=== PATIENT | male | born 1965 | race Caucasian/White ===

== ENCOUNTER 2022-04-09 04:04 | Day surgery (SDC) | payer OTHER ==
[2022-04-07 13:36] VITALS: BMI 25.7
[2022-04-09] MEDS ORDERED: LIDOCAINE HCL/PF 2% SDV 5ML VIAL ONE (07:08)
[2022-04-09] MEDS ORDERED: PROPOFOL 20 ML ONE ×2 (07:08→07:50)
[2022-04-09] MEDS ORDERED: MIDAZOLAM HCL 2 MG/2 ML SINGLE DOSE VIAL ONE (07:09)
[2022-04-09] MEDS ORDERED: ceFAZolin SODIUM 1 GM VIAL IVPB ONE (07:45)
[2022-04-09] MEDS ORDERED: ceFAZolin SODIUM 1 GM VIAL ONE (07:46)
[2022-04-09] MEDS ORDERED: DEXAMETHASONE SOD PHOSPHATE 4 MG/1 ML VIAL ONE (07:46)
[2022-04-09] MEDS ORDERED: ONDANSETRON 4 MG/2 ML VIAL ONE (07:56)
[2022-04-09] MEDS ORDERED: KETOROLAC TROMETHAMINE 30 MG/1 ML VIAL ONE (07:56)
[2022-04-09] MEDS ORDERED: oxyCODONE HCL 5 MG TABLET PO PRN ×3 (08:16→08:22)
[2022-04-09] MEDS ORDERED: ONDANSETRON 4 MG/2 ML VIAL IVPUSH PRN (08:22)
[2022-04-09] MEDS ORDERED: PROMETHAZINE HCL 25 MG/1 ML VIAL IVPUSH PRN (08:22)
[2022-04-09] MEDS ORDERED: DEXTROSE 5%-0.45% SALINE 1,000 ML IV SCH (08:30)
[2022-04-09] MEDS: hydrALAZINE HCL 20 MG/ML VIAL IVPUSH ONE ×2 (08:35→09:05)
[2022-04-09 10:33] VITALS: RESP 16
[2022-04-09 10:38] VITALS: PULSE 60
[2022-04-09] MEDS ORDERED: ACETAMINOPHEN 500 MG TABLET (FP) ONE (13:17)
[2022-04-09 16:06] VITALS: BP 150/80; TEMP 98
== END 2022-04-09 13:10 | disposition home or self-care (01) ==
LOC: JASU-SURG 04:04
PROVIDERS: ATTEND Urology
PROC: 0VT08ZZ Resection of Prostate, Via Natural or Artificial Opening Endoscopic (ICD-10-PCS; principal; 2022-04-09 07:30)
DX: N40.1 Benign prostatic hyperplasia with lower urinary tract symptoms (principal); R39.12 Poor urinary stream
CPT/HCPCS: 94760

== ENCOUNTER 2022-06-11 05:29 | Day surgery (SDC) | payer OTHER ==
[2022-06-09 10:01] VITALS: BMI 25.7
[2022-06-11 12:47] VITALS: RESP 18
[2022-06-11] MEDS ORDERED: PROMETHAZINE HCL 25 MG/1 ML VIAL IVPB PRN (14:26)
[2022-06-11] MEDS ORDERED: ONDANSETRON 4 MG/2 ML VIAL IVPUSH PRN (14:26)
[2022-06-11] MEDS ORDERED: LACTATED RINGERS SOLUTION 1,000 ML IV SCH (14:30)
[2022-06-11] MEDS ORDERED: MIDAZOLAM HCL 2 MG/2 ML SINGLE DOSE VIAL ONE ×2 (14:32→15:30)
[2022-06-11] MEDS ORDERED: BUPIVACAINE HCL/PF 0.5% (5MG/ML) 10 ML VIAL ONE (14:36)
[2022-06-11] MEDS ORDERED: GENTAMICIN SO4 80 MG/2 ML VIAL ONE (14:36)
[2022-06-11] MEDS ORDERED: GENTAMICIN SO4 80 MG/2 ML VIAL IVPB ONE (14:49)
[2022-06-11] MEDS ORDERED: ceFAZolin SODIUM 1 GM VIAL IVPB ONE (14:49)
[2022-06-11] MEDS ORDERED: ceFAZolin SODIUM 1 GM VIAL ONE (15:03)
[2022-06-11] MEDS ORDERED: PROPOFOL 20 ML ONE (15:03)
[2022-06-11] MEDS ORDERED: ONDANSETRON 4 MG/2 ML VIAL ONE (15:03)
[2022-06-11] MEDS ORDERED: LIDOCAINE HCL/PF 2% SDV 5ML VIAL ONE (15:03)
[2022-06-11] MEDS ORDERED: ROCURONIUM BROMIDE 50 MG/5 ML SYRINGE ONE (15:04)
[2022-06-11] MEDS ORDERED: oxyCODONE HCL 5 MG TABLET PO PRN (15:46)
[2022-06-11] MEDS ORDERED: DEXTROSE 5%-0.45% SALINE 1,000 ML IV SCH (16:00)
[2022-06-11] MEDS ORDERED: LABETALOL HCL 5 MG/1 ML (100MG/20 ML VIAL) IVPUSH ONE ×2 (16:20→16:21)
[2022-06-11 19:18] VITALS: BP 152/89; PULSE 62; TEMP 98.7
== END 2022-06-11 19:10 | disposition home or self-care (01) ==
LOC: JASU-SURG 05:29
PROVIDERS: ATTEND Urology
PROC: 0V508ZZ Destruction of Prostate, Via Natural or Artificial Opening Endoscopic (ICD-10-PCS; principal; 2022-06-11 14:30)
DX: N40.1 Benign prostatic hyperplasia with lower urinary tract symptoms (principal); R33.8 Other retention of urine
CPT/HCPCS: 88305-TC; 88312-TC; 88313-TC; 88341-TC; 88342-TC; 94760